=== PATIENT | male | born 1935 | race Caucasian/White ===

== ENCOUNTER 2021-03-29 13:38 | Inpatient (IN) | payer OTHER ==
[2021-03-29] VITALS (9 sets, daily range): BP systolic 108–138; BP diastolic 68–89
[~2021-03-29] VITALS: Ht 175.2 cm; Wt 97.2 kg
[~2021-03-29 13:38] MED LIST: ACETAMINOPHEN-H1 TA2 PO; ALLOPURINOL100 MG PO; AMBIEN10 M1 PO; ATARAX,VISTARIL10 MG PO; ATIVAN0.5 MG PO; CELECOXIB200 M1 PO; CRESTOR5 MG PO; DIOVAN/HCT 12.51 TAB PO; EFFEXOR XR150 M1 PO; HYDR12.5C PO; SKELAXIN800 M1 PO; TOPROL XL25 MG PO
[2021-03-29 14:01] LABS: ARTERIAL BLOOD GAS PH 7.441 (7.35-7.45); ARTERIAL BLOOD GAS PO2 81.3 (80-90)
[2021-03-29 14:43] LABS: ALBUMIN 2.7 gm/dl (3.1-4.5); CREATININE 2.12 mg/dL (0.70-1.30); POTASSIUM 3.2 mmol/L (3.5-5.1); TOTAL PROTEIN 7.9 gm/dL (6.4-8.2)
[2021-03-29 14:47] LABS: TROPONIN I 0.335 ng/ml (<0.045)
[2021-03-29 15:42] LABS: HEMATOCRIT 45.2 % (42.0-52.0); MEAN CORPUSCULAR HGB 31.8 pg (27.0-31.0); MEAN CORPUSCULAR HGB CONC 33.2 g/dl (33.0-37.0); MEAN PLATELET VOLUME 10.9 fl (9.6-12.3); PLATELET COUNT AUTOMATED 105 10*3/uL (130-400); RED BLOOD COUNT 4.71 10*6/uL (4.50-5.90); WHITE BLOOD COUNT 19.8 10*3/uL (4.8-10.8)
[2021-03-29 15:51] LABS: ACT PARTIAL THROMBO TIME 25.8 SECONDS (20.0-32.1); INTERNATIONAL NORM RATIO 1.1 (2.0-3.5)
[2021-03-29 16:54] LABS: PLATELET SUFFICIENCY LOW (NORMAL); TOTAL CELLS COUNTED 100 #CELLS
[2021-03-29 17:25] LABS: BILIRUBIN 2+ (Negative); BLOOD 1+ (Negative); CLARITY Turbid (Clear); COLOR Dark Yellow (Yellow); GLUCOSE Negative (Negative); KETONE Trace (Negative); LEUKO ESTERASE Trace (Negative); NITRITE Negative (Negative); SPECIFIC GRAVITY 1.025 (1.001-1.030)
[2021-03-29 17:52] LABS: BACTERIA 2+; HYALINE CAST TNTC
[2021-03-30 00:28] VITALS: BP 114/80
[2021-03-30 01:00] VITALS: BP 144/84
[2021-03-30] MEDS ORDERED: APRESOLINE10 MG PO (01:07)
[2021-03-30 06:47] LABS: BASO # 0.1 10*3/uL (0.0-0.1); BASO % 0.4 % (0.0-1.0); EOS # 0.8 10*3/uL (0.0-0.4); EOS % 4.5 % (1.0-4.0); HEMATOCRIT 41.6 % (42.0-52.0); LYMPH # 2.3 10*3/uL (1.3-4.4); LYMPH % 13.6 % (27.0-41.0); MEAN CELL VOLUME 95.4 fl (80.0-94.0); MEAN CORPUSCULAR HGB 31.7 pg (27.0-31.0); MEAN CORPUSCULAR HGB CONC 33.2 g/dl (33.0-37.0); MEAN PLATELET VOLUME 11.4 fl (9.6-12.3); MONO # 1.4 10*3/uL (0.1-1.0); MONO % 8.5 % (3.0-9.0); NEUT % 71.9 % (47.0-73.0); PLATELET COUNT AUTOMATED 92 10*3/uL (130-400); RED BLOOD COUNT 4.36 10*6/uL (4.50-5.90); RED CELL DISTRI WIDTH 13.1 % (0-14.5); WHITE BLOOD COUNT 16.7 10*3/uL (4.8-10.8)
[2021-03-30 08:00] VITALS: BP 116/83
[2021-03-30 12:00] VITALS: BP 136/94
[2021-03-30 16:00] VITALS: BP 141/82
[2021-03-30 20:00] VITALS: BP 142/81
[2021-03-31] VITALS: BP 109/89
[2021-03-31 06:26] LABS: BASO # 0.1 10*3/uL (0.0-0.1); BASO % 0.5 % (0.0-1.0); EOS # 0.8 10*3/uL (0.0-0.4); EOS % 5.6 % (1.0-4.0); HEMATOCRIT 36.2 % (42.0-52.0); LYMPH % 13.5 % (27.0-41.0); MEAN CORPUSCULAR HGB 31.7 pg (27.0-31.0); MEAN CORPUSCULAR HGB CONC 33.7 g/dl (33.0-37.0); MEAN PLATELET VOLUME 11.3 fl (9.6-12.3); MONO # 1.1 10*3/uL (0.1-1.0); MONO % 7.4 % (3.0-9.0); NEUT # 10.4 10*3/uL (2.3-7.9); PLATELET COUNT AUTOMATED 102 10*3/uL (130-400); RED BLOOD COUNT 3.85 10*6/uL (4.50-5.90); RED CELL DISTRI WIDTH 13.1 % (0-14.5); WHITE BLOOD COUNT 14.4 10*3/uL (4.8-10.8)
[2021-03-31 06:41] LABS: ALBUMIN 2.4 gm/dl (3.1-4.5); CREATININE 1.67 mg/dL (0.70-1.30); TOTAL PROTEIN 6.5 gm/dL (6.4-8.2)
[2021-03-31 08:00] VITALS: BP 125/85
[2021-03-31 11:25] VITALS: BP 116/70
[2021-03-31 12:00] VITALS: BP 128/82
[2021-03-31 16:00] VITALS: BP 132/78
[2021-03-31 20:00] VITALS: BP 110/80
[2021-04-01] VITALS (8 sets, daily range): BP systolic 93–150; BP diastolic 60–84
[2021-04-01 06:37] LABS: BASO # 0.1 10*3/uL (0.0-0.1); BASO % 0.6 % (0.0-1.0); EOS # 0.7 10*3/uL (0.0-0.4); EOS % 5.9 % (1.0-4.0); LYMPH # 1.5 10*3/uL (1.3-4.4); LYMPH % 12.5 % (27.0-41.0); MEAN CELL VOLUME 95.5 fl (80.0-94.0); MEAN CORPUSCULAR HGB 31.6 pg (27.0-31.0); MEAN CORPUSCULAR HGB CONC 33.1 g/dl (33.0-37.0); MEAN PLATELET VOLUME 11.2 fl (9.6-12.3); MONO # 0.8 10*3/uL (0.1-1.0); MONO % 6.7 % (3.0-9.0); NEUT % 73.3 % (47.0-73.0); PLATELET COUNT AUTOMATED 125 10*3/uL (130-400); RED BLOOD COUNT 3.77 10*6/uL (4.50-5.90); RED CELL DISTRI WIDTH 13.1 % (0-14.5); WHITE BLOOD COUNT 12.2 10*3/uL (4.8-10.8)
[2021-04-01 06:59] LABS: ALBUMIN 2.4 gm/dl (3.1-4.5); BUN 29 mg/dl (7-24); CHLORIDE 107 mmol/L (98-107); POTASSIUM 3.7 mmol/L (3.5-5.1); SODIUM 136 mmol/L (136-145)
[2021-04-01 07:02] LABS: ALKALINE PHOSPHATASE 128 U/L (45-117); CREATININE 1.28 mg/dL (0.70-1.30); SGOT/AST 100 IU/L (3-35); SGPT/ALT 138 U/L (12-78); TOTAL PROTEIN 6.5 gm/dL (6.4-8.2)
[2021-04-01] MEDS ORDERED: PANTOPRAZOLE SO40 MG PO (07:38)
[2021-04-01] MEDS ORDERED: CEFUROXIME AXE250 MG PO (07:38)
[2021-04-01] MEDS ORDERED: ELIQUIS5 M1 PO ×2 (07:38→08:03)
[2021-04-01] MEDS ORDERED: LISINOPRIL5 MG PO (07:46)
[2021-04-02] VITALS: BP 134/99
[2021-04-02 06:31] LABS: ALBUMIN 2.3 gm/dl (3.1-4.5); ALKALINE PHOSPHATASE 131 U/L (45-117); BUN 25 mg/dl (7-24); CHLORIDE 110 mmol/L (98-107); CREATININE 1.07 mg/dL (0.70-1.30); POTASSIUM 3.9 mmol/L (3.5-5.1); SGOT/AST 79 IU/L (3-35); SGPT/ALT 111 U/L (12-78); SODIUM 138 mmol/L (136-145); TOTAL PROTEIN 6.7 gm/dL (6.4-8.2)
[2021-04-02 06:49] LABS: BASO # 0.1 10*3/uL (0.0-0.1); BASO % 0.5 % (0.0-1.0); EOS # 0.6 10*3/uL (0.0-0.4); EOS % 4.7 % (1.0-4.0); HEMATOCRIT 36.7 % (42.0-52.0); LYMPH # 1.4 10*3/uL (1.3-4.4); LYMPH % 10.8 % (27.0-41.0); MEAN CELL VOLUME 97.1 fl (80.0-94.0); MEAN CORPUSCULAR HGB 31.7 pg (27.0-31.0); MEAN CORPUSCULAR HGB CONC 32.7 g/dl (33.0-37.0); MEAN PLATELET VOLUME 11.3 fl (9.6-12.3); MONO % 7.4 % (3.0-9.0); NEUT # 9.7 10*3/uL (2.3-7.9); NEUT % 75.8 % (47.0-73.0); PLATELET COUNT AUTOMATED 175 10*3/uL (130-400); RED BLOOD COUNT 3.78 10*6/uL (4.50-5.90); RED CELL DISTRI WIDTH 13.2 % (0-14.5); WHITE BLOOD COUNT 12.9 10*3/uL (4.8-10.8)
[2021-04-02 08:00] VITALS: BP 122/78
[2021-04-02 12:00] VITALS: BP 125/69
[2021-04-02 16:00] VITALS: BP 125/64
[2021-04-02 20:00] VITALS: BP 126/71
[2021-04-03] VITALS: BP 118/86
[2021-04-03 08:00] VITALS: BP 110/61
[2021-04-03 12:00] VITALS: BP 112/63
[2021-04-03 16:00] VITALS: BP 128/69
[2021-04-03 20:00] VITALS: BP 111/63
[2021-04-04] VITALS: BP 133/77
[2021-04-04] MEDS ORDERED: CARAFATE1 GM PO (07:21)
[2021-04-04] MEDS ORDERED: PANTOPRAZOLE SO40 MG PO (07:21)
[2021-04-04 08:00] VITALS: BP 113/70
[2021-04-04 12:00] VITALS: BP 118/64
== END 2021-04-04 15:11 | DRG 871 ==
LOC: ED 13:38 → EDHOLD 17:37 → 5E 17:37
PROVIDERS: Emergency Medicine; Internal Medicine Critical Care Medicine; ADMIT Internal Medicine; ATTEND Internal Medicine
PROC: 0HBRXZZ Excision of Toe Nail, External Approach (ICD-10-PCS; 2021-03-30)
PROC: 0HBRXZZ Excision of Toe Nail, External Approach (ICD-10-PCS; 2021-03-30)
PROC: 0HBRXZZ Excision of Toe Nail, External Approach (ICD-10-PCS; 2021-03-30)
PROC: 0HBRXZZ Excision of Toe Nail, External Approach (ICD-10-PCS; 2021-03-30)
PROC: 0HBRXZZ Excision of Toe Nail, External Approach (ICD-10-PCS; 2021-03-30)
PROC: 0HBRXZZ Excision of Toe Nail, External Approach (ICD-10-PCS; 2021-03-30)
PROC: 0HBRXZZ Excision of Toe Nail, External Approach (ICD-10-PCS; 2021-03-30)
PROC: 0HBRXZZ Excision of Toe Nail, External Approach (ICD-10-PCS; 2021-03-30)
PROC: BD1BYZZ Fluoroscopy of Mouth/Oropharynx using Other Contrast (ICD-10-PCS; 2021-03-31)
PROC: 0DC58ZZ Extirpation of Matter from Esophagus, Via Natural or Artificial Opening Endoscopic (ICD-10-PCS; principal; 2021-04-01)
DX: A41.9 Sepsis, unspecified organism (principal); N17.0 Acute kidney failure with tubular necrosis; I50.31 Acute diastolic (congestive) heart failure; J18.9 Pneumonia, unspecified organism; E87.2 Acidosis; E44.1 Mild protein-calorie malnutrition; I82.432 Acute embolism and thrombosis of left popliteal vein; I82.452 Acute embolism and thrombosis of left peroneal vein; I48.92 Unspecified atrial flutter; I48.21 Permanent atrial fibrillation; I31.9 Disease of pericardium, unspecified; D69.6 Thrombocytopenia, unspecified; E87.6 Hypokalemia; Z20.822 Contact with and (suspected) exposure to COVID-19; I07.1 Rheumatic tricuspid insufficiency; I27.20 Pulmonary hypertension, unspecified; F17.210 Nicotine dependence, cigarettes, uncomplicated; B35.1 Tinea unguium; G62.9 Polyneuropathy, unspecified; Z96.653 Presence of artificial knee joint, bilateral; K25.9 Gastric ulcer, unspecified as acute or chronic, without hemorrhage or perforation; T18.108A Unspecified foreign body in esophagus causing other injury, initial encounter; I35.0 Nonrheumatic aortic (valve) stenosis; K22.2 Esophageal obstruction; F41.9 Anxiety disorder, unspecified; X58.XXXA Exposure to other specified factors, initial encounter; I11.0 Hypertensive heart disease with heart failure; R19.7 Diarrhea, unspecified; Z95.0 Presence of cardiac pacemaker; Z68.31 Body mass index [BMI] 31.0-31.9, adult; Z90.49 Acquired absence of other specified parts of digestive tract; Z82.49 Family history of ischemic heart disease and other diseases of the circulatory system; Z82.5 Family history of asthma and other chronic lower respiratory diseases; Z79.1 Long term (current) use of non-steroidal anti-inflammatories (NSAID); Z79.899 Other long term (current) drug therapy; Y93.89 Activity, other specified; Y92.89 Other specified places as the place of occurrence of the external cause; Y99.8 Other external cause status